=== PATIENT | female | born 1985 | race Two or more races ===

== ENCOUNTER 2020-07-06 23:36 | Emergency (ER) | payer OTHER, SELFPAY ==
--- NOTE | 2020-07-07 00:11 | ED.URI ---
HPI - URI/Sore Throat General Chief Complaint: General Medical Stated Complaint: SINUS INFECTION Time Seen by Provider: 07/07/20 00:11 Source: patient and spanish medical interpreter Mode of arrival: ambulatory Limitations: no limitations History of Present Illness HPI Narrative: 7 months MD elicited complaint: nasal congestion and sinus pain Pertinent past history: sinusitis Onset (ago): day(s) (3) Consistency: constant Severity: moderate Description of mucous: yellow Able to tolerate fluids by mouth: Yes Exacerbating factors: leaning forward Relieving factors: nothing Associated symptoms: denies other symptoms Treatments prior to arrival: acetaminophen Related Data Previous Rx's Medication Instructions Recorded amoxicillin 500 mg PO BID 7 Days #14 cap 07/07/20 loratadine [Claritin] 10 mg PO DAILY PRN #30 tab 07/07/20 sodium chloride [Sterile Saline] 1 spray INTRANASAL BID PRN #126 ml 07/07/20 Allergies Allergy/AdvReac Type Severity Reaction Status Date / Time No Known Allergies Allergy Verified 07/07/20 00:15 Review of Systems Review of Systems: Constitutional : no Fever, no Chills, no fatigue, no Malaise ENT/Mouth : no sore throat, positive runny nose, positive sinus pain Eyes: No Discharge Cardiovascular : No Chest Pain, No SOB Respiratory : No Cough, No Sputum Gastrointestinal : No Nausea, No Vomiting, No Diarrhea Genitourinary : No Dysuria, No Urinary Frequency Musculoskeletal : no Myalgia Skin : No rash Neuro : No Headache PMFSH Past Medical History Medical History (Updated 07/07/20 @ 00:21 by Abena Modi DO) Sinusitis Social History Social History (Updated 07/07/20 @ 00:21 by Abena Modi DO) Smoking Status: Never smoker Use of substances other than those prescribed or required for medical reasons: No Physical Exam Vital Signs: Appearance: Alert. Oriented X3. No acute distress. Eyes: Pupils equal, round and reactive to light. ENT: Pharynx normal. ttp along bilateral max and frontal sinus Neck: Normal inspection. Neck supple. CVS: Normal heart rate and rhythm. Pulses normal. Respiratory: No respiratory distress. Breath sounds normal. Abdomen: Soft and nontender. Skin: Skin warm and dry. Normal skin color. Normal skin turgor. Extremities: No lower extremity edema. No calf ttp Neuro: Oriented X 3. No motor deficit. No sensory deficit. MDM - URI/Sore Throat MDM Narrative Medical decision making narrative: 35 yo female 7 months , not toxic, well hydrated, no OB complaints, refuses COVID swab, hx of sinusitis - c/o congsetion and sinus pain at this time will start on amoxicillin, saline, claritin and refer to her OB Discharge Plan Discharge Clinical Impression: Sinusitis Qualifiers: Sinusitis location: frontal Chronicity: acute Recurrence: non-recurrent Qualified Code(s): J01.10 - Acute frontal sinusitis, unspecified Patient Disposition: Home, Self-Care Instructions: Sinusitis (ED) Prescriptions: New amoxicillin 500 mg capsule 500 mg PO BID 7 Days Qty: 14 RF: 0 loratadine [Claritin] 10 mg tablet 10 mg PO DAILY PRN (Reason: allergy symptoms) Qty: 30 RF: 0 Sterile Saline 0.9 % aerosol,spray 1 spray intranasal BID PRN (Reason: nasal congestion) Qty: 126 RF: 0 Referrals: Physician,Unknown [Primary Care Provider] - 2 days (your OBGYN on Thursday)
[2020-07-07 00:16] VITALS: BP 132/74; PULSE 83; RESP 18; TEMP 37.1; O2SAT 95; BMI 33.1
== END 2020-07-07 00:38 | disposition home or self-care (01) ==
PROVIDERS: Emergency Provider Emergency Medicine
DX: O26.893 Other specified pregnancy related conditions, third trimester (principal); J01.10 Acute frontal sinusitis, unspecified; Z3A.30 30 weeks gestation of pregnancy
CPT/HCPCS: 99283